=== PATIENT | female | born 2000 | race Caucasian/White ===

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

== ENCOUNTER 2022-03-18 16:41 | Emergency (ER) | payer OTHER, SELFPAY ==
[2022-03-18 16:49] VITALS: BP 116/73; PULSE 59; RESP 18; TEMP 36.8; O2SAT 99; BMI 21.7
[2022-03-18 17:20] LABS: COVID-19 Test Negative (Negative); IDNOW Serial# 9DB6401D
== END 2022-03-18 21:00 | disposition left against medical advice (07) ==
PROVIDERS: Emergency Provider Emergency Medicine; PCP Pediatrics
DX: R07.9 Chest pain, unspecified (principal); Z20.822 Contact with and (suspected) exposure to COVID-19
CPT/HCPCS: 87635; 99281; 99283

== ENCOUNTER 2022-09-28 00:16 | Emergency (ER) | payer OTHER, SELFPAY ==
[2022-09-28 00:23] VITALS: BP 109/74; PULSE 78; RESP 20; TEMP 36.5; O2SAT 100; BMI 19.2
[2022-09-28] MEDS: Ondansetron ODT 4 MG TAB.RAPDIS TRANSLINGU (00:34)
--- NOTE | 2022-09-28 00:37 | ED_ITS ---
HPI - Nausea/Vomiting/Diarrhea General Chief complaint: Nausea/Vomiting/Diarrhea Stated complaint: Vomiting, diarrhea 3 days Time Seen by Provider: 09/28/22 00:36 Source: patient Mode of arrival: ambulatory Limitations: no limitations History of Present Illness HPI Narrative: Patient otherwise healthy been sick for last 3 days with nausea/vomiting/diarrhea vomited multiple times unable to hold any liquids down also has watery stool denies any significant abdominal pain no upper respiratory symptoms Related Data Previous Rx's Medication Instructions Recorded ibuprofen 600 mg tablet 600 mg PO Q8H PRN pain #20 tabs 07/20/21 loperamide 2 mg capsule (Imodium 2 mg PO Q6H PRN loose stool #14 09/28/22 A-D) caps ondansetron 4 mg disintegrating 4 mg PO Q6-8H PRN nausea and 09/28/22 tablet vomiting #14 tabs Allergies Allergy/AdvReac Type Severity Reaction Status Date / Time No Known Allergies Allergy Verified 09/28/22 00:27 Review of Systems Review of Systems: Yes all other systems are reviewed and are negative [facility] Past Medical History Medical History No known health problems Social History Social History Advance Directives: No Advance Directives Information Provided: Yes Physical Exam Vital Signs: Vital Signs: Last Vital Signs Temp 97.7 F 09/28/22 00:23 Pulse 78 09/28/22 00:23 Resp 20 09/28/22 00:23 BP 109/74 09/28/22 00:23 Pulse Ox 100 09/28/22 00:23 O2 Del Method 09/28/22 00:23 BMI result Body Mass Index 19.2 Appearance: Alert. Oriented X3. Actively vomiting and retching Eyes: No pallor or icterus ENT: Pharynx normal. Oral Mucosa moist Neck: Normal inspection. Neck supple. CVS: Normal heart rate and rhythm. Pulses normal. Respiratory: No respiratory distress. Equal air entry bilateral, no wheezing/rales/rhonchi Abdomen: Soft and nontender. Bowel sounds are present, no mass palpable, no CVA tenderness Skin: Skin warm and dry. Normal skin color. Normal skin turgor. Extremities: No lower extremity edema. No calf tenderness Neuro: Oriented X 3. No motor deficit. Medications Administered Discontinued Medications Generic Name Dose Route Start Last Admin Trade Name Alyssa PRN Reason Stop Dose Admin Sodium Chloride 1,000 mls @ 999 mls/hr 09/28/22 00:48 09/28/22 02:52 Ns IV 09/28/22 01:48 Infused .Q1H1M ONE Infusion Loperamide HCl 2 mg 09/28/22 00:48 09/28/22 00:58 Loperamide Hcl 2 Mg Capsule PO 09/28/22 00:49 2 mg ONCE ONE Administration Ondansetron HCl 4 mg 09/28/22 00:28 09/28/22 00:34 Ondansetron Odt 4 Mg Tab.Rapdis TRANSLINGU 09/28/22 00:29 4 mg ONCE ONE Administration Prochlorperazine Edisylate 10 mg 09/28/22 00:49 09/28/22 00:58 Prochlorperazine Edisylate 10 Mg/2 Ml Vial IVPUSH 09/28/22 00:50 10 mg ONCE ONE Administration Medical Decision Making Medical Decision Making [facility] Narrative: Patient acute gastroenteritis likely viral felt better after IV fluids taking p.o. challenge now will discharge patient home on Zofran and Imodium Lab Data [facility] Lab Attestation statement: I reviewed the patient's lab results. 09/28/22 00:53 09/28/22 00:53 Labs: Lab Results 09/28/22 09/28/22 Range/Units 00:53 00:53 WBC 17.0 H (4.8-10.8) X10*3/uL RBC 5.01 (4.20-5.50) X10*6/uL Hgb 14.7 (12.0-16.0) g/dl Hct 44.0 (37.0-47.0) % MCV 87.8 (80.0-98.0) fL MCH 29.3 (27.0-33.0) pg MCHC 33.4 (31.0-35.0) g/dl RDW 12.6 (11.0-16.0) % Plt Count 256 (160-400) X10*3/uL MPV 9.8 (9.4-12.3) fL Immature Gran % (Auto) 0.6 H (0.0-0.4) % Neut % (Auto) 88.7 H (45-73) % Lymph % (Auto) 5.8 L (20-40) % Barnwell % (Auto) 4.4 (2-11) % Eos % (Auto) 0.1 (0-4) % Baso % (Auto) 0.4 (0-2) % Lymph # (Auto) 1.0 L (1.2-4.9) X10*3/uL Barnwell # (Auto) 0.8 (0.1-1.2) X10*3/uL Eos # (Auto) 0.0 (0.0-0.4) X10*3/uL Baso # (Auto) 0.1 (0.0-0.2) X10*3/uL Abs Immat Gran (auto) 0.11 H (0.00-0.03) X10*3/uL Absolute Neuts (auto) 15.0 H (2.0-8.3) x10*3/uL Absolute Nucleated RBC 0.000 (0.0-0.012) X10*3/uL Nucleated RBC % (auto) 0.0 (0.0-0.2) /100WBC Sodium 142 (135-145) mmol/L Potassium 4.2 (3.3-5.1) mmol/L Chloride 107 (96-108) mmol/L Carbon Dioxide 20 L (22-29) mmol/L Anion Gap 19 (12-20) BUN 19 H (9-16) mg/dL Creatinine 0.84 (0.5-1.4) mg/dL Estim Creat Clear Calc 80.2 Estimated GFR > 60 Random Glucose 140 H (60-115) mg/dL Calcium 10.3 H (8.4-10.2) mg/dL Total Bilirubin 0.9 (0.0-1.0) mg/dL AST 28 (5-31) U/L ALT 34 H (0-31) U/L Alkaline Phosphatase 130 H (39-117) U/L Total Protein 8.6 H (6.5-8.0) g/dL Albumin 5.5 H (3.5-5.0) g/dL Lipase 9 (8-78) U/L Discharge Plan Discharge Clinical Impression: Gastroenteritis Patient Disposition: Home, Self-Care Instructions: Gastroenteritis (ED) Additional Instructions: Drink plenty of fluids Zofran and Imodium as advised Follow with PCP if not better Prescriptions: New ondansetron 4 mg tablet,disintegrating 4 mg PO Q6-8H PRN (Reason: nausea and vomiting) Qty: 14 0RF loperamide [Imodium A-D] 2 mg capsule 2 mg PO Q6H PRN (Reason: loose stool) Qty: 14 0RF No Action ibuprofen 600 mg tablet 600 mg PO Q8H PRN (Reason: pain) Qty: 20 0RF
--- OUTSIDE RECORDS SUMMARY | 2022-09-28 00:39 | XMS_ITS | Continuity of Care Document ---
:2000 Author Organization [facility] Address [address] [place] [address]- Care Team Providers Name Role Phone Barb Gonzales MD Primary Care Physician [place] [facility] [place] 05/23/[address] [address] Encounter Diagnosis Viral syndrome (Final) - 05/23/20 First degree AV block (Final) - 05/23/20 Discharge Disposition: A-D/C Home Attending Physician: Mika Du MD Admitting Physician: Mika Du MD Referring Physician: Not on Staff, Referring MD Allergies, Adverse Reactions, Alerts Substance Reaction Severity Status NKA Active Medications Motrin Childrens 100 mg oral tablet, chewable 3 tablet = 300 mg, Chew, Every 6 hours, PRN for pain, # 80 tablet, 0 Refills, Maintenance, Chew Tablet Start Date: 04/16/13 Status: OrderedNo Home Meds 0, 0, 06/21/07 6:30:21, Current med (Hx) Start Date: 06/21/07 Status: Ordered Results Radiology Reports Exam Date Time Procedure Performing Provider Status 05/23/20 10:38 PM Chest Portable Rimma Colon (Verified ) Notes:(Chest Portable) Reason For Exam: Shortness of BreathRESULT: Chest Portable Chest Portable AP upright at 2224 hours Hx of Present Illness: epigastric and midsternal chest pain that hurts most when breathing in, entire body aches x 2 days, diarrhea today 3-4 times, taking PO, denies fever, does not want to take pain meds; Reason: Shortness of Breath; Clinical Question(s): CHF COMPARISON: 04/16/2013 FINDINGS: LINES AND TUBES: None. LUNGS AND PLEURA: The lungs are clear. No pleural effusion. No pneumothorax. HEART, MEDIASTINUM AND TONY: Normal. BONES AND SOFT TISSUES: Normal. IMPRESSION: Normal. WSN: [id number] Ordering Physician: Moo Chau Dictated By: Jimmie Dodson DO Dictated Date/Time: 05/23/20 10:42 p Reviewed By: Jimmie Dodson DO Signed By: Jimmie Dodson DO Signed Date/Time: 05/23/20 10:42 pm Transcribed By: ANDRA Transcribed Date/Time: 05/23/20 10:42 pm Vital Signs Most recent to oldest [Reference Range]: 1 2 Height 157 cm 157 cm (05/23/20 10:09 PM) (05/23/20 8:08 PM) Weight 56.0 kg 56.0 kg (05/23/20 10:09 PM) (05/23/20 8:08 PM) Oxygen Saturation [94-100 %] 100 % 100 % (05/23/20 10:09 PM) (05/23/20 8:08 PM) Pulse Rate [55-90 bpm] 69 bpm 89 bpm (05/23/20 10:09 PM) (05/23/20 8:08 PM) Body Mass Index [18.5-24.99] 22.72 22.72 (05/23/20 10:09 PM) (05/23/20 8:08 PM) Blood Pressure [80-130/50-80 mm Hg] 110/66 mm Hg 125/ 78 mm Hg (05/23/20 10:09 PM) (05/23/20 8:08 PM) Respiratory Rate [16-30 br/min] 18 br/min 19 br/mi n (05/23/20 10:09 PM) (05/23/20 8:08 PM) Temperature [96.8-100.4 DegF] 99.0 DegF 98.1 DegF (05/23/20 10:09 PM) (05/23/20 8:08 PM) Mode of Delivery (Oxygen) Room air Room air (05/23/20 10:09 PM) (05/23/20 8:08 PM) Blood pressure sites Arm, left Arm, right (05/23/20 10:09 PM) (05/23/20 8:08 PM) Temperature Route Oral Oral (10/16/20 10:09 PM) (05/23/20 8:08 PM) Dry Weight 56.0 kg 56.0 kg (05/23/20 10:09 PM) (05/23/20 8:08 PM) Weight Obtained Via Standing scale (05/23/20 8:08 PM) Dry Weight Obtained Via Standing scale (05/23/20 8:08 PM)
--- OUTSIDE RECORDS SUMMARY | 2022-09-28 00:39 | XMS_ITS | Continuity of Care Document ---
:2000 Author Organization [facility] Address [address] [place] [address]- Care Team Providers Name Role Phone Barb Gonzales MD Primary Care Physician Encounter [facility] [place] Date(s): 04/01/22 - 04/01/[address] [address]- Discharge Disposition: A-D/C Walkout Attending Physician: Not on Staff, Attending MD Admitting Physician: Not on Staff, Admitting MD Referring Physician: Not on Staff, Referring MD Allergies, Adverse Reactions, Alerts No Known Allergies Medications Motrin Childrens 100 mg oral tablet, chewable 3 tablet = 300 mg, Chew, Every 6 hours, PRN for pain, # 80 tablet, 0 Refills, Maintenance, Chew Tablet Start Date: 04/16/13 Status: OrderedNo Home Meds 0, 0, 06/21/07 6:30:21, Current med (Hx) Start Date: 06/21/07 Status: Ordered Vital Signs Most recent to oldest 1 2 3 [Reference Range]: Oxygen Saturation [94-100 %] 100 % 98 % 100 % (04/01/22 6:58 PM) (04/01/22 4:48 PM) (04/01/22 4:3 3 PM) Pulse Rate [55-90 bpm] 66 bpm 53 bpm 51 bpm (04/01/22 6:58 PM) *L* *L* (04/01/22 4:48 PM) (04/01/22 4:33 PM) Blood Pressure [90-138/55-84 mm 117/65 mm Hg 110/60 mm Hg Hg] (04/01/22 6:58 PM) (04/01/22 4:48 PM) Respiratory Rate [16-30 br/min] 16 br/min (04/01/22 4:48 PM) Temperature [96.8-100.4 DegF] 97.0 DegF 98.9 DegF (04/01/22 6:58 PM) (04/01/22 4:48 PM) Mode of Delivery (Oxygen) Room air Room air Room a ir (04/01/22 6:58 PM) (04/01/22 4:48 PM) (04/01/22 4:3 3 PM) Blood pressure sites Arm, left Arm, right (04/01/22 6:58 PM) (04/01/22 4:48 PM) Temperature Route Temporal Oral (04/01/22 6:58 PM) (04/01/22 4:48 PM) Care Team PersonnelName: Barb Gonzales MD Address: [address] [place] [address] [facility] [place], [place] [address]
[2022-09-28] MEDS: Prochlorperazine Edisylate 10 MG/2 ML VIAL IVPUSH (00:58)
[2022-09-28] MEDS: 0.9 % Sodium Chloride 1,000 ML 999 ML IV ×2 (00:58→03:22)
[2022-09-28] MEDS: Loperamide HCl 2 MG CAPSULE PO (00:58)
[2022-09-28 01:03] LABS: MANUAL DIFF FLAG NO
[2022-09-28 01:04] LABS: Basophils Absolute Auto 0.1 X10*3/uL (0.0-0.2); Basophils Percent Auto 0.4 % (0-2); Eosinophils Percent Auto 0.1 % (0-4); Hemoglobin 14.7 g/dl (12.0-16.0); Imm Gran Abs Auto 0.11 X10*3/uL (0.00-0.03); Imm Gran Pct Auto 0.6 % (0.0-0.4); Lymphocytes Percent Auto 5.8 % (20-40); Mean Corpuscular HGB Conc 33.4 g/dl (31.0-35.0); Mean Corpuscular Hemoglobin 29.3 pg (27.0-33.0); Mean Corpuscular Volume 87.8 fL (80.0-98.0); Mean Platelet Volume 9.8 fL (9.4-12.3); Monocytes Absolute Auto 0.8 X10*3/uL (0.1-1.2); Monocytes Percent Auto 4.4 % (2-11); Neutrophils Percent Auto 88.7 % (45-73); Platelet Count 256 X10*3/uL (160-400); Red Blood Count 5.01 X10*6/uL (4.20-5.50); Red Cell Distribution Width 12.6 % (11.0-16.0)
[2022-09-28 01:25] LABS: Alanine Aminotransferase 34 U/L (0-31); Albumin Level 5.5 g/dL (3.5-5.0); Alkaline Phosphatase 130 U/L (39-117); Anion Gap 19 (12-20); Aspartate Amino Transferase 28 U/L (5-31); Bilirubin Total 0.9 mg/dL (0.0-1.0); Blood Urea Nitrogen 19 mg/dL (9-16); Calcium 10.3 mg/dL (8.4-10.2); Carbon Dioxide 20 mmol/L (22-29); Chloride 107 mmol/L (96-108); Creatinine Clr Calc Pharmacy 80.2; Estimated Glomerular Filt Rate > 60; Glucose Random 140 mg/dL (60-115); Lipase 9 U/L (8-78); Potassium 4.2 mmol/L (3.3-5.1); Sodium 142 mmol/L (135-145); Total Protein 8.6 g/dL (6.5-8.0)
[2022-09-28] MEDS: ondansetron HCL 4 MG/2 ML VIAL IVPUSH (03:22)
== END 2022-09-28 04:49 | disposition home or self-care (01) ==
PROVIDERS: Emergency Provider Internal Medicine; PCP Pediatrics
DX: K52.9 Noninfective gastroenteritis and colitis, unspecified (principal); R11.2 Nausea with vomiting, unspecified
CPT/HCPCS: 36415; 80053; 83690; 85025; 96361; 96374; 96375; 99283; 99284; J2405

== ENCOUNTER 2022-12-21 18:10 | Emergency (ER) | payer OTHER, SELFPAY ==
--- NOTE | ~2022-12-21 | XR_ITS ---
EXAMINATION: XR FINGER, LEFT CLINICAL INFORMATION: Fourth digit pain COMPARISON: None available. TECHNIQUE: 4 views of the left ring finger. FINDINGS: There is an intra-articular fracture involving the distal head of the middle phalanx of the fourth digit. There is some impaction and ventral angulation of the distal fracture fragment. No additional fractures are seen. There is associated soft tissue swelling XR/XR finger LT min 2V IMPRESSION: Fracture of the middle phalanx of the fourth digit as described above.
[2022-12-21 19:13] VITALS: BP 126/80; PULSE 74; RESP 16; TEMP 36.6; O2SAT 100; BMI 19.9
--- NOTE | 2022-12-21 19:13 | ED.GENADULT ---
HPI - General Adult General Chief complaint: Extremity Injury, Upper Stated complaint: finger injury Time Seen by Provider: 12/21/22 19:51 Source: patient Mode of arrival: ambulatory Limitations: no limitations History of Present Illness HPI narrative: 13-[id number]-oag-female presenting to the ER for evaluation of leftfourth finger pain s/p fall. Was playing with friend and fell onto it. On exam, fourth left finger at middle phalanx, full flexion and extension. No other injury Related Data Previous Rx's Medication Instructions Recorded ibuprofen 600 mg tablet 600 mg PO Q8H PRN pain #20 tabs 07/20/21 loperamide 2 mg capsule (Imodium 2 mg PO Q6H PRN loose stool #14 09/28/22 A-D) caps ondansetron 4 mg disintegrating 4 mg PO Q6-8H PRN nausea and 09/28/22 tablet vomiting #14 tabs Allergies Allergy/AdvReac Type Severity Reaction Status Date / Time No Known Allergies Allergy Verified 09/28/22 00:27 Review of Systems Review of Systems: Yes all other systems are reviewed and are negative Constitutional: Constitutional: Reports no additional constitutional complaints, Denies body ache(s), Denies chills, Denies fever(s), Denies headache(s) and Denies weakness Eyes: Eyes: Reports no additional eye complaints and Denies change in vision ENT: Reports system reviewed and no additional complaints, except as documented, Denies dizziness, Denies headache(s), Denies nasal congestion, Denies nasal discharge and Denies neck pain Cardiovascular: Cardiovascular: Reports no additional cardiovascular complaints, Denies chest pain, Denies leg edema and Denies dyspnea Respiratory: Respiratory: Reports no additional respiratory complaints, Denies cough and Denies dyspnea Gastrointestinal: Gastrointestinal: Reports no additional gastrointestinal complaints, Denies abdominal pain, Denies diarrhea, Denies nausea and Denies vomiting Genitourinary: Genitourinary: Reports no additional female genitourinary complaints and Denies urinary incontinence Musculoskeletal: Musculoskeletal: Reports no additional musculoskeletal complaints, Denies back pain, Reports arthralgias, Reports joint swelling, Denies limited range of motion, Denies neck pain, Denies numbness and Denies tingling Integumentary/Breasts: Skin/Breast: Reports system reviewed and no additional complaints, except as docu and Denies rash Neurologic: Reports system reviewed and no additional complaints, except as documented, Denies dizziness, Denies headache(s), Denies numbness, Denies tingling and Denies weakness PMF[facility] Past Medical History Attestation statement: The following information was validated with the patient. Source: old records reviewed and nursing notes reviewed Medical History No known health problems Social History Social History Advance Directives: No Advance Directives Information Provided: No Physical Exam ED Vital Signs: Vital Signs - 24 hr 12/21/22 19:13 Temperature 97.9 F Pulse Rate 74 Respiratory Rate 16 Blood Pressure 126/80 Pulse Oximetry 100 Oxygen Delivery Method Room Air BMI result Body Mass Index 19.9 Const General: cooperative, healthy appearing, comfortable and no acute distress Orientation/consciousness: patient oriented x3 Limitations: no limitations HENMT Head: Yes normal to inspection Ears: hearing grossly normal bilaterally Eyes General: appearance normal, both eyes and all related structures Neck Neck: Yes normal visual inspection Chest Chest palpation & inspection: normal inspection of the chest Resp Effort & Inspection: normal respiratory effort Cardio Peripheral pulses: Peripheral pulses 2+ throughout Skin General skin exam: no rashes or lesions noted Neuro General: patient oriented x3 and moves all extremities Cognition (Neuro): normal cognition Gait exam (Neuro): Normal gait present Extrem Other: To left hand 4th digit here wit swelling/ecchymposis to middle phalanx with FROM. CMS intact distally Course Course Course Narrative: This is an RME: Additional HPI, ROS, PE not included below will be deferred to primary provider. 20-iaiq-eip-female presenting to the ER for evaluation of leftfourth finger pain s/p fall. Was playing with friend and fell onto it. On exam, fourth left finger at middle phalanx, full flexion and extension. VSS. Plan: xray left fourth finger Reevaluation(s) Reevaluation #1: x-rays show fracture. given finger splint, reviewed rice, reviewed worrisome s/s with the patient and when to seek additional care. comfortable with discharge home. Medical Decision Making Medical Decision Making MDM Narrative: 81-[id number]-tzo-female presenting to the ER for evaluation of leftfourth finger pain s/p fall. Was playing with friend and fell onto it. On exam, fourth left finger at middle phalanx, full flexion and extension. VSS. Plan: xray left fourth finger Differential Diagnosis Differential Diagnoses: The differential diagnosis associated with the presentation includes fracture, contusion low concern for tendon injury or vascular injury Discharge Plan Discharge Clinical Impression: Finger fracture Patient Disposition: Home, Self-Care Instructions: Finger Fracture (ED) Additional Instructions: Use the splint for comfort Ice to the area Motrin or tylenol for pain as needed Prescriptions: No Action ondansetron 4 mg tablet,disintegrating 4 mg PO Q6-8H PRN (Reason: nausea and vomiting) Qty: 14 0RF loperamide [Imodium A-D] 2 mg capsule 2 mg PO Q6H PRN (Reason: loose stool) Qty: 14 0RF ibuprofen 600 mg tablet 600 mg PO Q8H PRN (Reason: pain) Qty: 20 0RF Referrals: [facility] [Provider Group] - 10 days
--- NOTE | 2022-12-21 19:31 | PC.NURSE ---
Patient was playing with her sister when she jammed her finger. Left middle finger is notably swollen and patient is having trouble bending it. Patient otherwise well appearing.
== END 2022-12-21 20:15 | disposition home or self-care (01) ==
PROVIDERS: Emergency Provider Emergency Medicine; PCP Pediatrics
DX: S62.625A Displaced fracture of middle phalanx of left ring finger, initial encounter for closed fracture (principal); W01.0XXA Fall on same level from slipping, tripping and stumbling without subsequent striking against object, initial encounter; Y93.83 Activity, rough housing and horseplay; Y92.039 Unspecified place in apartment as the place of occurrence of the external cause; Y99.9 Unspecified external cause status
CPT/HCPCS: 29130; 73140; 99282; 99283

== ENCOUNTER 2023-01-05 07:15 | Outpatient (REF) | payer OTHER, SELFPAY ==
--- NOTE | ~2023-01-05 | XR_ITS ---
EXAMINATION: XR HAND, LEFT CLINICAL INFORMATION: Left hand pain COMPARISON: 12/21/2022 TECHNIQUE: PA, lateral, and oblique views of the left hand. FINDINGS: Acute comminuted fracture at the distal metaphysis of the fourth middle phalanx extending into the DIP joint joint space. Fracture fragments demonstrate some mild impaction with no significant change in positioning. Joint spaces are otherwise well-maintained. Soft tissue swelling is seen. No significant change compared to the prior exam XR/XR hand LT min 3V IMPRESSION: Acute fracture of the fourth middle phalanx. Stable position
== END 2023-01-05 07:16 | disposition home or self-care (01) ==
LOC: HO.HOSX 07:15
PROVIDERS: Visit Provider Physician Assistant
DX: S62.605A Fracture of unspecified phalanx of left ring finger, initial encounter for closed fracture (principal); W19.XXXA Unspecified fall, initial encounter; Y93.9 Activity, unspecified; Y92.9 Unspecified place or not applicable; Y99.9 Unspecified external cause status
CPT/HCPCS: 73130; 99202

== ENCOUNTER 2023-01-28 12:29 | Outpatient (REF) | payer OTHER, SELFPAY ==
--- NOTE | ~2023-01-28 | XR_ITS ---
EXAMINATION: XR HAND, LEFT CLINICAL INFORMATION: Left hand pain COMPARISON: 01/05/2023, 12/21/2022 TECHNIQUE: PA, lateral, and oblique views of the left hand. FINDINGS: Radiopaque marker was placed by technologist to indicate area of concern as indicated by patient at the distal aspect of the fourth digit. Redemonstration of comminuted fracture of the distal metaphysis of the fourth middle phalanx with mild displacement of fracture fragments, extending into the DIP joint space. Fracture line appears less distinct, suggesting some interval callus formation. XR/XR hand LT min 3V IMPRESSION: Healing fracture fourth middle phalanx.
== END 2023-01-28 12:30 | disposition home or self-care (01) ==
LOC: HO.HOSX 12:29
PROVIDERS: Visit Provider Physician Assistant
DX: M79.642 Pain in left hand (principal)
CPT/HCPCS: 73130; 99212

== ENCOUNTER 2023-01-31 04:43 | Emergency (ER) | payer OTHER, SELFPAY ==
[2023-01-31 04:53] VITALS: BP 96/58; PULSE 84; RESP 14; O2SAT 98; BMI 18.9
[2023-01-31 05:20] LABS: Basophils Absolute Auto 0.1 X10*3/uL (0.0-0.2); Basophils Percent Auto 1.4 % (0-2); Eosinophils Absolute Auto 0.1 X10*3/uL (0.0-0.4); Eosinophils Percent Auto 1.6 % (0-4); Hematocrit 40.2 % (37.0-47.0); Imm Gran Abs Auto 0.01 X10*3/uL (0.00-0.03); Imm Gran Pct Auto 0.2 % (0.0-0.4); Lymphocytes Absolute Auto 1.7 X10*3/uL (1.2-4.9); Lymphocytes Percent Auto 33.1 % (20-40); MANUAL DIFF FLAG NO; Mean Corpuscular HGB Conc 32.3 g/dl (31.0-35.0); Mean Corpuscular Volume 89.7 fL (80.0-98.0); Mean Platelet Volume 9.3 fL (9.4-12.3); Monocytes Absolute Auto 0.5 X10*3/uL (0.1-1.2); Monocytes Percent Auto 10.2 % (2-11); Neutrophils Absolute Auto 2.7 x10*3/uL (2.0-8.3); Neutrophils Percent Auto 53.5 % (45-73); Platelet Count 254 X10*3/uL (160-400); Red Blood Count 4.48 X10*6/uL (4.20-5.50); Red Cell Distribution Width 12.8 % (11.0-16.0); White Blood Count 5.1 X10*3/uL (4.8-10.8)
[2023-01-31 05:21] LABS: Appearance Urine Turbid; Color Urine Yellow; Glucose Urine UA Negative (Negative); Leukocyte Esterase Urine Trace (Negative); Nitrite Urine Negative (Negative); PH 5.5 (5.0-9.0); Specific Gravity - Urine 1.025 (1.005-1.025); UMIC TRIGGER UACC YES; Urine Blood Small (1+) (Negative); Urine Ketones Trace mg/dL (Negative); Urine Protein 30 (1+) mg/dL (Neg-Trace)
[2023-01-31 05:33] LABS: Ethanol 49 mg/dL
[2023-01-31 05:34] LABS: Bacteria Urine 2+ (None Seen); Other Crystals Urine Present; UACC Culture Trigger YES
[2023-01-31 05:35] LABS: Alanine Aminotransferase 21 U/L (0-31); Albumin Level 4.9 g/dL (3.5-5.0); Alkaline Phosphatase 114 U/L (39-117); Anion Gap 13 (12-20); Aspartate Amino Transferase 20 U/L (5-31); Bilirubin Total 0.4 mg/dL (0.0-1.0); Blood Urea Nitrogen 9 mg/dL (9-16); Calcium 9.6 mg/dL (8.4-10.2); Carbon Dioxide 28 mmol/L (22-29); Chloride 110 mmol/L (96-108); Creatinine Clr Calc Pharmacy 90.4; Estimated Glomerular Filt Rate > 60; Glucose Random 96 mg/dL (60-115); Lipase 5 U/L (8-78); Potassium 3.8 mmol/L (3.3-5.1); Sodium 147 mmol/L (135-145); Total Protein 7.9 g/dL (6.5-8.0)
[2023-01-31 06:42] VITALS: BP 125/77; PULSE 68; RESP 18; TEMP 37.2; O2SAT 99
[2023-01-31] MEDS: 0.9 % Sodium Chloride 1,000 ML 999 ML IV (06:50)
[2023-01-31] MEDS: ondansetron HCL 4 MG/2 ML VIAL IVPUSH (06:50)
--- NOTE | 2023-01-31 06:52 | PC.NURSE ---
patient received all medications with no issues patient vitals are stable at this time patient is waiting to see the doctor at this time
--- NOTE | 2023-01-31 06:59 | ED_ITS ---
HPI - Nausea/Vomiting/Diarrhea General Chief complaint: Nausea/Vomiting/Diarrhea Stated complaint: nausea Time Seen by Provider: 01/31/23 06:58 Source: patient, RN notes reviewed and old records reviewed Mode of arrival: ambulatory Limitations: no limitations History of Present Illness HPI Narrative: 22 year old female with no known significant PMHx presents to the ED complaining of nausea, nonbloody emesis and diarrhea since 2AM s/p drinking 1/2 pint of [place]. Denies illicit drug use. Reports epigastric abdominal pain. Denies CP/SOB, headache, dysuria, urgency, frequency, or vaginal bleeding. No other acute concerns at this time. Denies suspicious food intake, recent travel, sick contacts. Denies being chronic ETOH abuse MD elicited complaint: nausea, vomiting and diarrhea Related Data Previous Rx's Medication Instructions Recorded ondansetron 4 mg disintegrating 4 mg PO Q8H PRN nausea and 01/31/23 tablet vomiting #8 tabs Allergies Allergy/AdvReac Type Severity Reaction Status Date / Time No Known Allergies Allergy Verified 01/31/23 04:52 Review of Systems Review of Systems: Constitutional: No Fever, No Chills ENT/Mouth: No Nasal Congestion,No Hoarseness, No sore throat Cardiovascular: No Chest Pain, No SOB Respiratory: No Cough, No Sputum, No Wheezing Gastrointestinal: + Nausea, + Vomiting, No Diarrhea, + Abdominal pain Genitourinary: No Dysuria, No Urinary Frequency, No Hematuria, No Urgency Skin: No Skin Lesions, No rash Neuro: No Weakness Yes all other systems are reviewed and are negative Constitutional: Constitutional: Reports as per [facility] Past Medical History Attestation statement: The following information was validated with the patient. Source: old records reviewed Medical History No known health problems Social History Social History Alcohol intake: never Smoked in Last 30 Days: No Use of substances other than those prescribed or required for medical reasons: No Advance Directives: No Patient : No Physical Exam Vital Signs: Vital Signs: Last Vital Signs Temp 98.1 F 01/31/23 08:00 Pulse 57 01/31/23 08:00 Resp 16 01/31/23 08:00 BP 117/74 01/31/23 08:00 Pulse Ox 100 01/31/23 08:00 O2 Del Method Room Air 01/31/23 08:00 BMI result Body Mass Index 18.9 Const: Other: pale, uncomfortable General: cooperative, no acute distress, alert and awake Nutritional Appearance: thin Orientation/consciousness: patient oriented x3 L imitations: no limitations HEENT: Head: Yes normal to inspection and Yes atraumatic Ears: hearing grossly normal bilaterally General nose exam: Normal external nose present Face and sinus: Yes normal facial exam Throat: Yes posterior oropharynx normal Eyes: General: appearance normal, both eyes and all related structures EOM: EOMs intact bilaterally Neck: Neck: Yes normal visual inspection Chest: Chest palpation & inspection: normal inspection of the chest and normal palpation of entire chest wall Resp: Effort & Inspection: normal respiratory effort and no respiratory distress Auscultation: clear to auscultation bilaterally Cardio: Rate: regular rate Heart sounds: S1 normal heart sound present and S2 normal heart sound present GI: Inspection: Yes normal to inspection Palpation (GI): Soft to palpation, nontender, no guarding and not rigid : General: Yes no CVA tenderness Back/Spine/Pelvis: Back: no CVA tenderness Skin: Rashes: no rashes Wounds: no wounds Neuro: General: patient oriented x3, gait normal, tone normal and moves all extremities Gait exam (Neuro): Normal gait present Extrem: General: Yes normal to inspection Course Course Course Narrative: -901--no leukocytosis. Mild hypernatremia likely from dehydration. Labs otherwise reassuring -UA contaminated, will avoid antibiotic initiation until culture results -ethinyl 49 -tox screen positive for THC. Urine negative >0952--on re-evaluation patient reports symptomatic improvement, tolerating p.o. without nausea or vomiting. Feels safe for discharge home at this time Results discussed with patient including worrisome signs and symptoms and strict return precautions, and when to return to the emergency department. They verbalized understanding and feel safe for discharge at this time. Medications Administered Discontinued Medications Generic Name Dose Route Start Last Admin Trade Name Freq PRN Reason Stop Dose Admin Diphenhydramine HCl 25 mg 01/31/23 07:57 01/31/23 08:14 Diphenhydramine Hcl 50 Mg/Ml Vial IVPUSH 01/31/23 07:58 25 mg ONCE ONE Administration Sodium Chloride 1,000 mls @ 999 mls/hr 01/31/23 06:45 01/31/23 10:00 Ns IV 01/31/23 07:45 Infused .Q1H1M DANIELLA Infusion Metoclopramide HCl 10 mg 01/31/23 07:57 01/31/23 08:14 Metoclopramide Hcl 10 Mg/2 Ml Vial IVPUSH 01/31/23 07:58 10 mg ONCE ONE Administration Ondansetron HCl 4 mg 01/31/23 06:43 01/31/23 06:50 Ondansetron Hcl 4 Mg/2 Ml Vial IVPUSH 01/31/23 06:44 4 mg ONCE ONE Administration Medical Decision Making Medical Decision Making [facility] Narrative: 22 year old female with no known significant PMHx presents to the ED complaining of nausea, nonbloody emesis and diarrhea since 2AM s/p drinking 1/2 pint of [place]. On exam, vital signs stable, NAD, uncomfortable on exam, abdomen soft, nontender, no guarding or rigidity. Concern for alcohol intoxication/overuse/binge drinking vs gastroenteritis vs GERD/gastritis vs pancreatitis. Rule out metabolic abnormalities. Low suspicion for appendicitis/diverticulitis, SBO or ectopic . Plan: Labs, Tox, UA, IVF, Zofran, re-evaluate Please refer to course for remaining clinical decision making, interpretation of labs/imaging results, and discussions with consultants and/or family members. Differential Diagnosis Differential Diagnoses: The differential diagnosis associated with the presentation includes As above Admission/Observation Consideration of admission/observation: Escalation of care including admission/observation considered Lab Data [facility] Lab Attestation statement: I reviewed the patient's lab results. 01/31/23 05:15 01/31/23 05:15 Labs: Lab Results 01/31/23 01/31/23 01/31/23 Range/Units 05:14 05:15 05:15 WBC 5.1 (4.8-10.8) X10*3/uL RBC 4.48 (4.20-5.50) X10*6/uL Hgb 13.0 (12.0-16.0) g/dl Hct 40.2 (37.0-47.0) % MCV 89.7 (80.0-98.0) fL MCH 29.0 (27.0-33.0) pg MCHC 32.3 (31.0-35.0) g/dl RDW 12.8 (11.0-16.0) % Plt Count 254 (160-400) X10*3/uL MPV 9.3 L (9.4-12.3) fL Immature Gran % (Auto) 0.2 (0.0-0.4) % Neut % (Auto) 53.5 (45-73) % Lymph % (Auto) 33.1 (20-40) % [place] % (Auto) 10.2 (2-11) % Eos % (Auto) 1.6 (0-4) % Baso % (Auto) 1.4 (0-2) % Lymph # (Auto) 1.7 (1.2-4.9) X10*3/uL [place] # (Auto) 0.5 (0.1-1.2) X10*3/uL Eos # (Auto) 0.1 (0.0-0.4) X10*3/uL Baso # (Auto) 0.1 (0.0-0.2) X10*3/uL Abs Immat Gran (auto) 0.01 (0.00-0.03) X10*3/uL Absolute Neuts (auto) 2.7 (2.0-8.3) x10*3/uL Absolute Nucleated RBC 0.000 (0.0-0.012) X10*3/uL Nucleated RBC % (auto) 0.0 (0.0-0.2) /100WBC Sodium 147 H (135-145) mmol/L Potassium 3.8 (3.3-5.1) mmol/L Chloride 110 H (96-108) mmol/L Carbon Dioxide 28 (22-29) mmol/L Anion Gap 13 (12-20) BUN 9 (9-16) mg/dL Creatinine 0.71 (0.5-1.4) mg/dL Estim Creat Clear Calc 90.4 Estimated GFR > 60 Random Glucose 96 (60-115) mg/dL Calcium 9.6 D (8.4-10.2) mg/dL Magnesium 1.9 (1.6-2.6) mg/dL Total Bilirubin 0.4 (0.0-1.0) mg/dL AST 20 (5-31) U/L ALT 21 (0-31) U/L Alkaline Phosphatase 114 (39-117) U/L Total Protein 7.9 (6.5-8.0) g/dL Albumin 4.9 (3.5-5.0) g/dL Lipase 5 L (8-78) U/L Urine Color Urine Appearance Urine pH (5.0-9.0) Ur Specific [place] (1.005-1.025) Urine Protein (Neg-Trace) mg/dL Urine Glucose (UA) (Negative) mg/dL Urine Ketones (Negative) mg/dL Urine Blood (Negative) Urine Nitrite (Negative) Ur Leukocyte Esterase (Negative) Urine RBC (0-2) /HPF Urine WBC (0-5) /HPF Ur Squamous Epith Cells (0-2) /HPF Other Crystals Urine Bacteria (None Seen) Hyaline Casts (0-2) /LPF Urine Test (NEGATIVE) Urine Opiates Screen (Not Detect) Urine Fentanyl Screen (Not Detect) Ur Barbiturates Screen (Not Detect) Ur Phencyclidine Scrn (Not Detect) Ur Amphetamines Screen (Not Detect) U Benzodiazepines Scrn (Not Detect) Urine Cocaine Screen (Not Detect) U Marijuana (THC) Screen (Not Detect) Ethyl Alcohol 49 mg/dL 01/31/23 01/31/23 01/31/23 Range/Units 05:15 05:15 05:15 WBC (4.8-10.8) X10*3/uL RBC (4.20-5.50) X10*6/uL Hgb (12.0-16.0) g/dl Hct (37.0-47.0) % MCV (80.0-98.0) fL MCH (27.0-33.0) pg MCHC (31.0-35.0) g/dl RDW (11.0-16.0) % Plt Count (160-400) X10*3/uL MPV (9.4-12.3) fL Immature Gran % (Auto) (0.0-0.4) % Neut % (Auto) (45-73) % Lymph % (Auto) (20-40) % [place] % (Auto) (2-11) % Eos % (Auto) (0-4) % Baso % (Auto) (0-2) % Lymph # (Auto) (1.2-4.9) X10*3/uL [place] # (Auto) (0.1-1.2) X10*3/uL Eos # (Auto) (0.0-0.4) X10*3/uL Baso # (Auto) (0.0-0.2) X10*3/uL Abs Immat Gran (auto) (0.00-0.03) X10*3/uL Absolute Neuts (auto) (2.0-8.3) x10*3/uL Absolute Nucleated RBC (0.0-0.012) X10*3/uL Nucleated RBC % (auto) (0.0-0.2) /100WBC Sodium (135-145) mmol/L Potassium (3.3-5.1) mmol/L Chloride (96-108) mmol/L Carbon Dioxide (22-29) mmol/L Anion Gap (12-20) BUN (9-16) mg/dL Creatinine (0.5-1.4) mg/dL Estim Creat Clear Calc Estimated GFR Random Glucose (60-115) mg/dL Calcium (8.4-10.2) mg/dL Magnesium (1.6-2.6) mg/dL Total Bilirubin (0.0-1.0) mg/dL AST (5-31) U/L ALT (0-31) U/L Alkaline Phosphatase (39-117) U/L Total Protein (6.5-8.0) g/dL Albumin (3.5-5.0) g/dL Lipase (8-78) U/L Urine Color Yellow Urine Appearance Turbid Urine pH 5.5 (5.0-9.0) Ur Specific [place] 1.025 (1.005-1.025) Urine Protein 30 (1+) H (Neg-Trace) mg/dL Urine Glucose (UA) Negative (Negative) mg/dL Urine Ketones Trace (Negative) mg/dL Urine Blood Small (1+) H (Negative) Urine Nitrite Negative (Negative) Ur Leukocyte Esterase Trace H (Negative) Urine RBC 3-5 H (0-2) /HPF Urine WBC 11-20 H (0-5) /HPF Ur Squamous Epith Cells 11-20 (0-2) /HPF Other Crystals Present Urine Bacteria 2+ (None Seen) Hyaline Casts 3-5 (0-2) /LPF Urine Test NEGATIVE (NEGATIVE) Urine Opiates Screen Not Detected (Not Detect) Urine Fentanyl Screen Not Detected (Not Detect) Ur Barbiturates Screen Not Detected (Not Detect) Ur Phencyclidine Scrn Not Detected (Not Detect) Ur Amphetamines Screen Not Detected (Not Detect) U Benzodiazepines Scrn Not Detected (Not Detect) Urine Cocaine Screen Not Detected (Not Detect) U Marijuana (THC) Screen POSITIVE H (Not Detect) Ethyl Alcohol mg/dL External Record Review External record reviewed: Inpatient record, Office record, Outpatient record, Prior outpatient labs, Prior outpatient radiology, Primary care record and Outside ED record Tests considered The following testing was considered but not selected: As above Prescription Management I considered prescription management with: Pain Medication Social Determinants Patient?s care significantly limited by Social Determinants of Health including: Alcoholism and drug addiction in family Discharge Plan Discharge Clinical Impression: Drinking binge, Nausea & vomiting Patient Disposition: Home, Self-Care Instructions: Acute Nausea and Vomiting (ED) Additional Instructions: Your blood work and urine were reassuring Please avoid alcohol and drug use Zofran as antinausea medication, take as needed for nausea and vomiting Practice of bland diet Make sure in taking plenty of fluids Follow-up with her doctor, if symptoms persist or worsen, you are unable to eat or drink have persistent/worsening abdominal pain return to the ED Prescriptions: New ondansetron 4 mg tablet,disintegrating 4 mg PO Q8H PRN (Reason: nausea and vomiting) Qty: 8 0RF Referrals: Physician,Unknown J [Primary Care Provider] - Interventions: ED Discharge Assessment Last Done: 01/31/23 10:55 Discharge Date/Time: 01/31/23 10:55
[2023-01-31 07:40] LABS: Magnesium 1.9 mg/dL (1.6-2.6)
[2023-01-31 08:00] VITALS: BP 117/74; PULSE 57; RESP 16; TEMP 36.7; O2SAT 100
[2023-01-31] MEDS: Metoclopramide HCl 10 MG/2 ML VIAL IVPUSH (08:14)
[2023-01-31] MEDS: diphenhydrAMINE HCL 50 MG/ML VIAL 25 MG IVPUSH (08:14)
--- NOTE | 2023-01-31 08:22 | PC.NURSE ---
pt lying comfortably with the lights dimmed, vss, NS reconnected, meds administered per provider order, hyperactive bs noted upon auscultation, new emesis bag placed bedside, will continue to monitor.
[2023-01-31 09:39] LABS: UPreg QC Valid YES; Urine Pregnancy NEGATIVE (NEGATIVE)
[2023-01-31 09:47] LABS: Amphetamine Screen Urine Not Detected (Not Detect); Barbiturates, Urine Not Detected (Not Detect); Benzodiazepines Screen Urine Not Detected (Not Detect); Cannabinoid Screen Urine POSITIVE (Not Detect); Cocaine Screen Urine Not Detected (Not Detect); Fentanyl, urine Not Detected (Not Detect); Opiate Screen Urine Not Detected (Not Detect); Phencyclidine Screen Urine Not Detected (Not Detect)
== END 2023-01-31 10:55 | disposition home or self-care (01) ==
PROVIDERS: Physician Assistant; Emergency Provider Emergency Medicine
DX: R11.2 Nausea with vomiting, unspecified (principal); F10.129 Alcohol abuse with intoxication, unspecified; Y90.2 Blood alcohol level of 40-59 mg/100 ml; F12.90 Cannabis use, unspecified, uncomplicated; R10.13 Epigastric pain
CPT/HCPCS: 36415; 80053; 80307; 81001; 81025; 83690; 83735; 85025; 87086; 96361; 96374; 96375; 96376; 99284; J1200; J2405; J2765

== ENCOUNTER → 2025-04-03 09:38 | Outpatient (BNVA) | payer SELFPAY | PROVIDERS: Visit Provider Physician Assistant | DX: Z02.1 Encounter for pre-employment examination (principal); R76.11 Nonspecific reaction to tuberculin skin test without active tuberculosis ==

== ENCOUNTER 2025-04-25 12:10 | Emergency (ER) | payer OTHER, SELFPAY ==
--- NOTE | ~2025-04-25 | XR_ITS ---
EXAMINATION: XR CHEST CLINICAL INFORMATION: chest pain, SOB COMPARISON: None available. TECHNIQUE: 2 views of the chest were obtained. FINDINGS: The cardiac, hilar, and mediastinal contours are normal. The lungs are clear bilaterally. There is no pneumothorax or pleural effusion. There is no focal osseous or soft tissue abnormality. XR/XR chest 2V IMPRESSION: Normal chest. Electronically signed by: Jorge L Ennis MD 04/25/2025 01:58 PM EDT
[2025-04-25 12:17] VITALS: BP 132/79; PULSE 65; RESP 18; TEMP 36.9; O2SAT 98; BMI 17.5
--- NOTE | 2025-04-25 12:17 | ED_ITS ---
HPI - General Adult General Chief complaint: Upper Respiratory Symptoms Stated complaint: Dizziness, not feeling well Time Seen by Provider: 04/25/25 16:05 Source: patient Mode of arrival: ambulatory Limitations: no limitations History of Present Illness ED Provider: Madeleine Mayes PA-C HPI narrative: Patient is a 24 year old assigned female at with no reported medical history presenting to the emergency department today with dizziness and feeling generally unwell. Patient states that starting yesterday she started to feel unwell with dizziness. Patient states that her daughter has rhinovirus at home. Patient denies any other complaints at this time. Related Data Previous Rx's ?Medication ?Instructions ?Recorded ondansetron 4 mg disintegrating 4 mg PO Q8H PRN nausea and 01/31/23 tablet vomiting #8 tabs Allergies Allergy/AdvReac Type Severity Reaction Status Date / Time No Known Allergies Allergy Verified 04/25/25 12:20 Review of Systems 2 Constitutional: Constitutional: Reports as per HPI Eyes: Eyes: Reports as per HPI ENT: Reports as per HPI Cardiovascular: Cardiovascular: Reports as per HPI Respiratory: Respiratory: Reports as per HPI Gastrointestinal: Gastrointestinal: Reports as per HPI Genitourinary: Genitourinary: Reports as per HPI Musculoskeletal: Musculoskeletal: Reports as per HPI Integumentary/Breasts: Skin/Breast: Reports as per HPI Neurologic: Reports as per HPI Psychiatric: Psychiatric: Reports as per HPI Endocrine: Endocrine: Reports as per HPI Hematologic/Lymphatic: Hematologic/Lymphatic: Reports as per HPI Allergic/Immunologic: Allergic/Immunologic: Reports as per HPI [facility], [facility] Past Medical History Attestation statement: The following information was validated with the patient. Source: old records reviewed and nursing notes reviewed Medical History No known health problems Social History Social History Alcohol intake: never Advance Directives: No Advance Directives Information Provided: Yes Physical Exam ED Vital Signs: Vital Signs - 24 hr 04/25/25 12:17 Temperature 98.4 F Pulse Rate 65 Respiratory Rate 18 Blood Pressure 132/79 Pulse Oximetry 98 Oxygen Delivery Method Room Air BMI result Body Mass Index 17.5 Const General: cooperative, no acute distress, alert and awake Nutritional Appearance: well nourished Orientation/consciousness: patient oriented x3 HENMT Head: Yes normal to inspection and Yes atraumatic Ears: hearing grossly normal bilaterally and external ears normal General nose exam: Normal external nose present, no nasal discharge noted and no epistaxis Face and sinus: Yes normal facial exam, No abrasion and No laceration Mouth: Normal oral and palatal mucosa present, no drooling and no muffled voice Eyes General: appearance normal, both eyes and all related structures Periorbital: periorbital findings normal Eyelids: Yes eyelids normal Conjunctivae: conjunctivae normal Pupils: Equal, round and reactive pupils present EOM: EOMs intact bilaterally Neck Neck: Yes normal visual inspection and Yes full ROM Resp Effort & Inspection: normal respiratory effort and able to speak in complete sentences Neuro General: patient oriented x3, moves all extremities and CN's II-XI intact bilaterally Cranial nerves: Yes Equal, round and reactive pupils present Cognition (Neuro): normal cognition Extrem General: Yes normal to inspection, Yes full ROM and Yes capillary refill normal Psych Appearance: grossly normal Mental Status: mental status grossly normal Affect: normal affect Attitude: cooperative Thought process: Normal thought process present Thought content: Normal thought content present Insight: Good insight present (Psych) Course Course Course Narrative: This is an RME: Additional HPI, ROS, PE not included below will be deferred to primary provider. RME assessment and note performed by: Tammy Asencio PA-C This is a 4-[age]-female, with no known medical problems, who presents to the ER with complaints of shortness of breath, congestion x 1 day. Reports pain in her lungs. Decreased PO intake. Daughter recently tested positive for rhinovirus. Plan: Labs, EKG, cxr, further ER eval needed Medical Decision Making Medical Decision Making MDM Narrative: Patient is a 24 year old assigned female at with no reported medical history presenting to the emergency department today with dizziness and feeling generally unwell. Patient's physical exam was unremarkable. Patient's blood work was unremarkable. Patient's urine showed no acute process. Patient's EKG was unremarkable. Patient's chest x-ray showed no acute process. I explained my physical exam findings as well as all test results to the patient. I answered all questions asked by the patient. Patient's clinical presentation is most consistent with a viral illness. I stressed the importance of the patient taking her medication as directed (either prescribed or as the over the counter packaging recommends). I stressed the importance of the patient following up with her primary care provider. I stressed the importance of the patient returning to the emergency department immediately if her symptoms were to worsen or if she were to develop any dizziness, shortness of breath, difficulty breathing, chest pain, blurry vision, loss of vision, nausea, vomiting, abdominal pain, fever, chills, back pain, or any other complaints. Patient verbalized agreement and understanding with this treatment plan and discharge. Differential Diagnosis Differential Diagnoses: The differential diagnosis associated with the presentation includes Viral illness Dizziness Admission/Observation Consideration of admission/observation: Escalation of care including admission/observation considered Patient would have been admitted to the hospital had her work up had any findings where hospital admission was appropriate and her clinical presentation warranted hospital admission. Lab Data [facility] Lab Attestation statement: I reviewed the patient's lab results. My interpretation of these results are in the [facility] Rationale portion of this note. 04/25/25 12:34 04/25/25 12:34 Labs: Lab Results 04/25/25 Range/Units 12:34 WBC 5.2 (4.8-10.8) X10*3/uL RBC 4.42 (4.20-5.50) X10*6/uL Hgb 13.0 (12.0-16.0) g/dl Hct 37.5 (37.0-47.0) % MCV 84.8 (80.0-98.0) fL MCH 29.4 (27.0-33.0) pg MCHC 34.7 (31.0-35.0) g/dl RDW 13.2 (11.0-16.0) % Plt Count 235 (160-400) X10*3/uL MPV 9.7 (9.4-12.3) fL Immature Gran % (Auto) 0.2 (0.0-0.4) % Neut % (Auto) 41.8 L (45-73) % Lymph % (Auto) 40.0 (20-40) % Davis % (Auto) 14.1 H (2-11) % Eos % (Auto) 2.9 (0-4) % Baso % (Auto) 1.0 (0-2) % Lymph # (Auto) 2.1 (1.2-4.9) X10*3/uL Davis # (Auto) 0.7 (0.1-1.2) X10*3/uL Eos # (Auto) 0.2 (0.0-0.4) X10*3/uL Baso # (Auto) 0.1 (0.0-0.2) X10*3/uL Abs Immat Gran (auto) 0.01 (0.00-0.03) X10*3/uL Absolute Neuts (auto) 2.2 (2.0-8.3) x10*3/uL Absolute Nucleated RBC 0.000 (0.0-0.012) X10*3/uL Nucleated RBC % (auto) 0.0 (0.0-0.2) /100WBC Sodium 141 (135-145) mmol/L Potassium 3.4 (3.3-5.1) mmol/L Chloride 113 H (96-108) mmol/L Carbon Dioxide 22 (22-29) mmol/L Anion Gap 9 L (12-20) BUN 9 (9-16) mg/dL Creatinine 0.62 (0.5-1.4) mg/dL Estim Creat Clear Calc 97.4 Estimated GFR > 60 Random Glucose 103 (60-115) mg/dL Calcium 9.0 D (8.4-10.2) mg/dL Total Bilirubin 0.5 (0.0-1.0) mg/dL Direct Bilirubin 0.2 (0.0-0.5) mg/dL AST 25 (5-31) U/L ALT 25 (0-31) U/L Alkaline Phosphatase 90 (39-117) U/L Total Protein 7.1 (6.5-8.0) g/dL Albumin 4.9 (3.5-5.0) g/dL Beta HCG, Quant < 2 mIU/mL COVID-19 (MERVAT) Negative (Negative) COVID-19 Clin Com See Note Influenza Type A (TIFFANIE) Negative (Negative) Influenza Type B (TIFFANIE) Negative (Negative) Influenza A & B Note See Note Independent Interpretation I performed an independent interpretation of an: EKG and Plain X-Ray Interpretation: My interpretation is in agreement with the radiologist's impression of this imaging study. L Reason for Exam: chest pain, SOB EXAMINATION: XR CHEST CLINICAL INFORMATION: chest pain, SOB COMPARISON: None available. TECHNIQUE: 2 views of the chest were obtained. FINDINGS: The cardiac, hilar, and mediastinal contours are normal. The lungs are clear bilaterally. There is no pneumothorax or pleural effusion. There is no focal osseous or soft tissue abnormality. XR/XR chest 2V IMPRESSION: Normal chest. Electronically signed by: Jorge L Ennis MD 04/25/2025 01:58 PM EDT Dictated By: Jorge L Ennis MD Signed By: Electronically signed by Jorge L Ennis MD 04/25/25 1358 I independently interpreted this EKG and am in agreement with the below findings: Vent. Rate: 62 BPM Atrial Rate: 62 BPM P-R Int: 220 ms QRS Dur: 72 ms QT Int: 386 ms P-R-T Axes: 88 77 58 degrees QTcB Int: 391 ms Sinus rhythm with sinus arrhythmia with 1st degree A-V block Possible Left atrial enlargement No previous ECGs available DD/ 1228 Radiology Impression Discussion of test interpretation with radiology: I have reviewed the radiologist's reading. Discharge Plan Discharge Clinical Impression: Viral illness Patient Disposition: Home, Self-Care Instructions: Viral Syndrome (ED) Additional Instructions: Your work up today was unremarkable - there is no evidence of an EMERGENT process causing your symptoms. I believe you have a viral illness. Please stay hydrated. IF you are prescribed home medications and/or you are taking over the counter medications at home - it is very important you continue to do so as prescribed / directed unless told otherwise. Follow up with a primary care provider. Return to the emergency department immediately if your symptoms worsen or if you develop any numbness, tingling, dizziness, shortness of breath, difficulty breathing, chest pain, blurry vision, loss of vision, nausea, vomiting, abdominal pain, fever, chills, back pain, or any other complaints. L If you do not have a primary care provider - call any of the below numbers to establish and follow up with a primary care provider. [facility] Primary Care ([place]) [phone] [place] [address] [place], [address] [facility] Primary Care ([address]) [phone] [address] [facility], [address] [facility], [address] [facility] Primary Care ([address]) [phone] [address] [facility], [address] [facility], [address] [facility] Primary Care ([place]) [phone] [place] [address], [address] [facility], [address] [facility] Family Medicine [phone] [address] [facility], [address] Please see the information below about our Patient Portal. If you are not yet enrolled in the [facility] Patient Portal, you will receive an enrollment email invitation following your visit to any [facility] setting. You may also self-enroll in the Patient Portal by visiting our website: [email or web address] The following information is required to access the Patient Portal: - Your [facility] Medical Record Number - Your personal home email address (must match what is in your electronic medical record, Registration staff can assist with this) - Name - Date of Capabilities of the Patient Portal: - Message some providers - View upcoming appointments - Access your health summary, medical history, and visit history - View current conditions and allergies - View procedure and lab results - View your medications, including guidelines, side effects, and precautions - Complete pre-appointment questionnaires requested by your provider - Ready summary reports of your office visits and procedures To access the Patient Portal Mobile [employer], follow these directions: - Search [employer] in the [employer] Store or [employer] Store - Download the [employer] - Search for [facility] - Enter your login/password Prescriptions: No Action ondansetron 4 mg tablet,disintegrating 4 mg PO Q8H PRN (Reason: nausea and vomiting) Qty: 8 0RF Print Language: Vietnamese
--- NOTE | 2025-04-25 12:18 | ECG_ITS ---
Test Reason : CP Blood Pressure : */* mmHG Vent. Rate : 62 BPM Atrial Rate : 62 BPM P-R Int : 220 ms QRS Dur : 72 ms QT Int : 386 ms P-R-T Axes : 88 77 58 degrees QTcB Int : 391 ms Sinus rhythm with sinus arrhythmia with 1st degree A-V block Possible Left atrial enlargement Septal infarct , age undetermined Abnormal ECG No previous ECGs available Referred By: Tammy Asencio Electronically Signed By: RANDY PATTON
[2025-04-25 12:42] LABS: MANUAL DIFF FLAG NO
[2025-04-25 12:45] LABS: Hematocrit 37.5 % (37.0-47.0); Hemoglobin 13.0 g/dl (12.0-16.0); Imm Gran Abs Auto 0.01 X10*3/uL (0.00-0.03); Imm Gran Pct Auto 0.2 % (0.0-0.4); Lymphocytes Absolute Auto 2.1 X10*3/uL (1.2-4.9); Mean Corpuscular HGB Conc 34.7 g/dl (31.0-35.0); Mean Corpuscular Hemoglobin 29.4 pg (27.0-33.0); Mean Corpuscular Volume 84.8 fL (80.0-98.0); NRBC Abs Auto 0.000 X10*3/uL (0.0-0.012); NRBC Pct Auto 0.0 /100WBC (0.0-0.2); Platelet Count 235 X10*3/uL (160-400); Red Blood Count 4.42 X10*6/uL (4.20-5.50); White Blood Count 5.2 X10*3/uL (4.8-10.8)
[2025-04-25 13:03] LABS: COVID-19 Test Negative (Negative); IDNOW Serial# 55D5AD1C
[2025-04-25 13:05] LABS: IDNOW Serial# 58CA691E; Influenza B2 Negative (Negative)
[2025-04-25 13:17] LABS: Alanine Aminotransferase 25 U/L (0-31); Albumin Level 4.9 g/dL (3.5-5.0); Alkaline Phosphatase 90 U/L (39-117); Anion Gap 9 (12-20); Aspartate Amino Transferase 25 U/L (5-31); Blood Urea Nitrogen 9 mg/dL (9-16); Calcium 9.0 mg/dL (8.4-10.2); Carbon Dioxide 22 mmol/L (22-29); Chloride 113 mmol/L (96-108); Creatinine Clr Calc Pharmacy 97.4; Estimated Glomerular Filt Rate > 60; Potassium 3.4 mmol/L (3.3-5.1); Sodium 141 mmol/L (135-145); Total Protein 7.1 g/dL (6.5-8.0)
--- OUTSIDE RECORDS SUMMARY | 2025-04-25 16:52 | XMS_ITS | Encounter Summary ---
Author Organization [facility] Address [address] [place] [address] Phone Care Team Providers Care [employer] Team Member Name Role Phone Provider, Amish OQUENDO Primary Care Provider [phone] Encounter Details Date Type Department Care Team (Late st Contact Info) Description 10/08/[address] [facility] Family Medicine [address] [place] [address] Family Medicine, Physician [address], [place] [address] Social History Tobacco Use Types Packs/Day Years Used Date Smoking Tobacco: Never Assessed Comments Unknown Sex and Gender Information Value Date Recorded Sex Assigned at Female 12/14/2021 1:30 PM EDT Legal Sex Female 5:23 PM EDT Gender Identity Female 12/14/2021 1:30 PM EDT Sexual Orientation Straight 12/14/2021 1: 30 PM EDT documented as of this encounter Plan of Treatment Not on file documented as of this encounter Visit Diagnoses Not on filedocumented in this encounter Care Teams [employer] Team Member Relationship Specialty Start Date End Date Provider, MD Amish [address] [place] [address] PCP - General Pediatrics 11/03/23 11/03/23 documented as of this encounter
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
--- OUTSIDE RECORDS SUMMARY | 2025-04-25 16:52 | XMS_ITS | Encounter Summary ---
Author Organization [facility] Address [address] [place] [address] Phone Care Team Providers Care Core Sucker Name Role Phone Provider, Amish OQUENDO Primary Care Provider [phone] Encounter Details Date Type Department Care Team ([facility] st Contact Info) Description 03/24/2017 Conversion Encounter [address] [address] Social History Tobacco Use Types Packs/Day Years Used Date Smoking Tobacco: Never Comments:Never smoker Comments Unknown Sex and Gender Information Value [...] on filedocumented in this encounter Care Teams Core Sucker Relationship Specialty Start Date End Date Provider, MD Amish [address] [place] [id number] PCP - General Pediatrics 11/03/23 11/03/23 documented as of this encounter
--- OUTSIDE RECORDS SUMMARY | 2025-04-25 16:52 | XMS_ITS | Encounter Summary ---
Author Organization [facility] Address [address] [place] [address] Phone Care Team Providers Care Deadener Name Role Phone Provider, Amish OQUENDO Primary Care Provider [phone] Encounter Details Date Type Department Care Team (Late st Contact Info) Description 12/18/2009 Documentation [facility] [place] Medicine [address] [place], [place] [id number] Family Medicine, Physician [address] [id number] Social History Tobacco Use Types Packs/Day Years [...] on filedocumented in this encounter Care Teams Deadener Relationship Specialty Start Date End Date Provider, MD Amish [address] [place] [address] PCP - General Pediatrics 11/03/23 11/03/23 documented as of this encounter
--- OUTSIDE RECORDS SUMMARY | 2025-04-25 16:52 | XMS_ITS | Encounter Summary ---
Author Organization [facility] Address [address] [place] [address] Phone Care Team Providers Care Assistant Teacher Name Role Phone Provider, Amish OQUENDO Primary Care Provider [phone] Encounter Details Date Type Department Care Team (Late st Contact Info) Description 03/19/2013 Documentation [facility] [place] Family Medicine [address] [place] [address] Family Medicine, Physician [address], [place] [phone] Social History Tobacco Use Types Packs/Day Years [...] on filedocumented in this encounter Care Teams Assistant Teacher Relationship Specialty Start Date End Date Provider, MD Amish [address] [place] [address] PCP - General Pediatrics 11/03/23 11/03/23 documented as of this encounter
--- OUTSIDE RECORDS SUMMARY | 2025-04-25 16:52 | XMS_ITS | Encounter Summary ---
Author Organization [facility] Address [address] [place] [address] Phone Care Team Providers Care Lead Java J2Ee Developer Name Role Phone Provider, Aimsh OQUENDO Primary Care Provider Encounter Details Date Type Department Care Team (Late st Contact Info) Description 10/21/2010 Documentation [facility] [place] Family Medicine [address] [place] [address] Family Medicine, Physician [address] [place] [place] [phone] Social History Tobacco Use Types Packs/Day Years [...] on filedocumented in this encounter Care Teams Lead Java J2Ee Developer Relationship Specialty Start Date End Date Provider, MD Amish [address] [place] [address] PCP - General Pediatrics 11/03/23 11/03/23 documented as of this encounter
--- OUTSIDE RECORDS SUMMARY | 2025-04-25 16:52 | XMS_ITS | Clinical Summary ---
Author Organization [facility] Address [address] [place] [address] Phone Care Team Providers Care Rn New Grad Name Role Phone Barb Gonzales MD Primary Care Provider [phone] Allergies No known active allergies Medications medroxyPROGESTE Bob 150 mg/mL injection Inject 1 mL (150 mg total) into the shoulder, thigh, or buttocks once every twelve (12) weeks. 1 mL 3 01/02/2025 Active Hospital, Clinic, or Other Facility Administered Medication Ordered Dose Route Frequency Start Date End Date Status medroxyPROGESTERone (DEPO-PROVERA) injection 150 mgIndications:Surveill ance of contraceptive injection 150 mg IM Every 3 months 01/07/2025 01/02/2026 Active medroxyPROGESTERone (DEPO-PROVERA) injection 150 mgIndications:Encounte r for management and injection of depo-Provera 150 mg IM Once 04/02/2025 04/02/2025 Ended Active Problems Problem Noted Date Diagnosed Date LGSIL on Pap smear of cervix 01/02/2025 Underweight 01/02/2025 Anxiety 02/14/2023 Overview (01/02/2025): 02/14/2023 : Warm handoff to Crystal Burger PhD today. Patient is using marijuana for management of anxiety. Substance use was discussed at length today. Have advised patient to start working with a therapist to address her anxiety and her substance abuse. 02/14/23 - VSK - Pt reports social anxiety and difficulties with anger management when stressed. Unintentional weight loss 12/14/2021 Allergic rhinitis 10/04/2013 Overview (01/02/2025): claritin in the summer season very effective Mild intermittent asthma 07/16/2009 Overview (01/02/2025): Albuterol prn- most often in summer season Encounters Date Type Department Care Team Description 04/02/2025 2:00 PM EDT Clinical Support Obstetrics and Gynecology [address] [address] Encounter for management and injection of depo-Provera (Primary Dx) 03/01/2025 Telephone Obstetrics & Gynecology - [facility] [address] [place] [address] Candi Blanco CNM from Last 3 Months Immunizations Name Administration Dates Next Due DTaP 5 pertussis antigens, D iptheria Tetanus acellular pertussis (Daptacel) 6wks to less than 7yo 06/20/2007,02/28/2004,09/03/2003,02/26,2002 H1N1 All Forms 07/16/2009 HPV, Quadrivalent 10/09/2014,12/21/2013,10/04/19 14 Hepatitis A Pediatric (Havri x; Vaqta) 12mo to less than 19yo 08/07/2015,10/09/2014 Hepatitis B Pediatric (Enger ix B; Recombivax HB) to less than 20 yo 02/28/2004,10/07/2003,2002 HiB PRP-T conjugate (Acthib, Hiberix) 6wks and older 02/28/2004,09/03/2003,02/26/2003,11/09 IPV Inactivated polio (Ipol) 6wks and older 06/20/2007,10/07/2003,02/26/2003,11/09 Influenza Quadrivalent, 0.5m l, preservative free (Fluarix; FluLaval; Fluzone) ages 6mo and older (Afluria) 3yo and older 05/13/2020,06/12/2019,06/20/2018,10/04 Influenza Quadrivalent, with preservative (Fluzone; Afluria) 6mo and older 08/07/2015,10/09/2014 Influenza Split 10/04/2012,09/02/2011,07/23/2010 Influenza trivalent, with pr eservative (Fluzone; Afluria) 6mo and older 07/16/2009,06/21/2008,06/20/2007,09/15 MMR, measles mumps and rubel la Live (Priorix; M-M-R II) 12mo and older 09/03/2003 MMRV, measles mumps rubella and varicella live (Proquad) 4yo to less than 7yo 06/20/2007 Meningococcal B, Recombinant (Trumenba) 16yo to less than 24yo 08/17/2021,07/23/2020 Meningococcal MCV4P 06/21/2019,10/04/2013 PPD Test 08/02/2023 Pneumococcal Conjugate Vacci ne, 7 Valent 09/03/2003,02/26/2003,2002 Tdap Tetanus diptheria acell ular pertussis (Boostrix; Adacel) 7yo and older 01/24/2024,10/04/2013 Varicella live (Varivax) 12m o and older 09/03/2003 Medical History Medical History Date Comments Patient denies medical problems Family History Relation Name Status Comments Father Alive Mother Alive Social History Tobacco Use Types Packs/Day Years Used Date Smoking Tobacco: Never Smokeless Tobacco: Never Alcohol Use Standard Drinks/Week Comments No 0 (1 standard drink = 0.6 oz pur e alcohol) Comments Unknown Sex and Gender Information Value Date Recorded Sex Assigned at Not on file Legal Sex Female 4:51 AM EST Gender Identity Not on file Sexual Orientation Not on file Obstetrics History Para Term AB IAB SAB Ectopic Multiple Livin g Live Births 1 1 1 0 0 0 1 1 Date Outcome GA Total Labor Labor/2nd/3rd Weight Sex Type Anes PTL Willow A1 A5 Name Clin 024 Term 38w 5d F Vag-S pont N Living Delivery Location:[facility] Last Filed Vital Signs Vital Sign Reading Time Taken Comments Blood Pressure 106/55 04/02/2025 2:10 PM EDT Pulse 66 04/02/2025 2:10 PM EDT Temperature - - Respiratory Rate 14 04/02/2025 2:10 PM EDT Oxygen Saturation - - Inhaled Oxygen Concentration - - Weight 44.4 kg (97 lb 12.8 oz) 04/02/2025 2:10 P M EDT Height 145 cm (4' 9.09 ) 04/02/2025 2:10 PM EDT Body Mass Index 21.1 04/02/2025 2:10 PM EDT Plan of Treatment Upcoming Encounters Date Type Department Care Team (Late st Contact Info) Description 06/26/2025 1:00 PM EST Clinical Support Obstetrics and Gynecology [address] [address] Health Maintenance Due Date Last Done Comments Gonorrhea/Chlamydia Screening 2002 Pneumococcal Vaccine: Pediatrics (0 to 5 Years) and At-Risk Patients (6 to 49 Years) (1 of 1 - PPSV23) 2008 09/03/2003, 02/26/2003, 2002 HIV Screening 03/06/2024 Hepatitis C Screening 03/06/2024 Social Influencers of Health Screening 03/06/2024 Depression Screening 08/08/2024 COVID-19 Vaccine ( season) 2025 Influenza Vaccine (#1) 2025 , 06/12/2019, 06/20/2018, Additional history exists Cervical Cancer Screening: Pap Smear 12/15/2026 12/16/2023, 12/16/2023 DTaP,Tdap,and Td Vaccines (8 - Td or Tdap) 01/23/2034 01/24/2024, 10/04/2013, 06/20/2007, Additional history exists HIB Vaccines Completed 02/28/2004, 08/09, 02/26/2003, Additional history exists Hepatitis B Vaccines Completed 02/28/2004, 10/07/2003, 2002 IPV Vaccines Completed 06/20/2007, 08/2003, 02/26/2003, Additional history exists MMR Vaccines Completed 06/20/2007, 09/03/2003 Varicella Vaccines Completed 06/20/2007, 09/03/2003 HPV Vaccines Completed 10/09/2014, 12/06, 10/04/2013 Hepatitis A Vaccines Completed 08/07/2015, 10/10/19 15 Meningococcal ACWY Vaccine Completed 06/21/2019, Meningococcal B Vaccine Completed 08/17/2021, 07/23 RSV Immunization Patients Under 20 months Aged Out No longer eligible based on patient's age to complete this topic Procedures Procedure Name Priority Date/Time Associated Diagnosis Comments EXTERNAL PAP SMEAR Routine 12/16/2023 12:00 AM EDT from Last 3 Months or Most Recently Relevant to Health Maintenance Results * (ABNORMAL) External PAP smear (12/16/2023 12:00 AM EDT) us Historical Provider LAB CYTOLOGY ORDERABLES F inal Result [facility] [address] [place], [place] [id number] from Last 3 Months or Most Recently Relevant to Health Maintenance Insurance [facility] [employer] Care Teams Rn New Grad Relationship Specialty Start Date End Date Barb Gonzales MD [address] [place] [address] PCP - General 03/05/19
--- OUTSIDE RECORDS SUMMARY | 2025-04-25 16:52 | XMS_ITS | Encounter Summary ---
Author Organization [facility] Address [address] [place] [address] Phone Care Team Providers Care Digester Hand Name Role Phone Provider, Amish OQUENDO Primary Care Provider [phone] Encounter Details Date Type Department Care Team (Late st Contact Info) Description 09/21/2010 Documentation [facility] [place] [address] [place] [address] Family Medicine, Physician [address], [place] [phone] Social History Tobacco Use Types Packs/Day Years [...] on filedocumented in this encounter Care Teams Digester Hand Relationship Specialty Start Date End Date Provider, MD Amish [address] [place] [address] PCP - General Pediatrics 11/03/23 11/03/23 documented as of this encounter
[2025-04-25 17:11] VITALS: BP 132/79; PULSE 65; RESP 18; TEMP 36.9; O2SAT 98
== END 2025-04-25 17:11 | disposition home or self-care (01) ==
PROVIDERS: Physician Assistant Medical; Emergency Provider Emergency Medicine
DX: B34.8 Other viral infections of unspecified site (principal); R42 Dizziness and giddiness
CPT/HCPCS: 71046; 80048; 80076; 84702; 85025; 87502; 87635; 93005; 99283

== ENCOUNTER → 2025-04-25 12:18 | Outpatient (BNV) | payer OTHER, SELFPAY | PROVIDERS: Emergency Provider Emergency Medicine; Visit Provider Internal Medicine | DX: I44.0 Atrioventricular block, first degree (principal); I49.9 Cardiac arrhythmia, unspecified | CPT/HCPCS: 93010 ==

== ENCOUNTER → 2025-04-25 12:18 | Outpatient (BNV) | payer SELFPAY | PROVIDERS: Visit Provider Radiology Diagnostic Radiology | DX: R07.9 Chest pain, unspecified (principal); R06.02 Shortness of breath | CPT/HCPCS: 71046 ==

== ENCOUNTER 2025-05-14 13:32 | Outpatient (REF) | payer OTHER, SELFPAY ==
[2025-05-14 14:48] LABS: MANUAL DIFF FLAG NO
[2025-05-14 15:12] LABS: Hematocrit 40.1 % (37.0-47.0); Hemoglobin 13.1 g/dl (12.0-16.0); Imm Gran Abs Auto 0.02 X10*3/uL (0.00-0.03); Imm Gran Pct Auto 0.3 % (0.0-0.4); Lymphocytes Absolute Auto 2.2 X10*3/uL (1.2-4.9); Mean Corpuscular HGB Conc 32.7 g/dl (31.0-35.0); Mean Corpuscular Hemoglobin 28.8 pg (27.0-33.0); Mean Corpuscular Volume 88.1 fL (80.0-98.0); NRBC Abs Auto 0.000 X10*3/uL (0.0-0.012); NRBC Pct Auto 0.0 /100WBC (0.0-0.2); Platelet Count 236 X10*3/uL (160-400); Red Blood Count 4.55 X10*6/uL (4.20-5.50); White Blood Count 5.9 X10*3/uL (4.8-10.8)
[2025-05-14 15:43] LABS: Alanine Aminotransferase 32 U/L (0-31); Albumin Level 5.1 g/dL (3.5-5.0); Alkaline Phosphatase 92 U/L (39-117); Anion Gap 11 (12-20); Aspartate Amino Transferase 23 U/L (5-31); Blood Urea Nitrogen 9 mg/dL (9-16); Calcium 9.2 mg/dL (8.4-10.2); Carbon Dioxide 25 mmol/L (22-29); Chloride 110 mmol/L (96-108); Estimated Glomerular Filt Rate > 60; Potassium 3.9 mmol/L (3.3-5.1); Sodium 142 mmol/L (135-145); Total Protein 7.6 g/dL (6.5-8.0)
[2025-05-14 16:08] LABS: Folate 8.0 ng/mL (> or = 4.0); Vitamin B12 393 pg/mL (200-900)
== END 2025-05-14 13:33 | disposition home or self-care (01) ==
LOC: HO.LAB 13:32
DX: Z13.29 Encounter for screening for other suspected endocrine disorder (principal); Z13.21 Encounter for screening for nutritional disorder; Z13.1 Encounter for screening for diabetes mellitus; Z13.0 Encounter for screening for diseases of the blood and blood-forming organs and certain disorders involving the immune mechanism; F32.A Depression, unspecified; F41.9 Anxiety disorder, unspecified; Z79.899 Other long term (current) drug therapy
CPT/HCPCS: 36415; 80053; 82306; 82607; 82746; 84443; 85025; 96127; 99202

== ENCOUNTER 2025-05-14 13:32 | Outpatient (AMB) | payer OTHER, SELFPAY ==
[2025-05-14 13:35] VITALS: BP 100/70; PULSE 81; RESP 18; TEMP 36.2; O2SAT 97; BMI 18.0
--- NOTE | 2025-05-14 13:35 | MHC.PC.OV ---
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: No Accompanied by: Self / Same As Patient Allergies No Known Allergies Allergy (Verified 05/14/25 13:47) Medication List - Last Reconciled 05/14/25 by Nabila Lin PA-C medroxyprogesterone (Depo-Provera) 150 mg IM [id number] Tobacco use date assessed: 05/14/25 Dental Screening Dental Screen Date: 05/14/25 Did you have a dental visit in the last 12 months?: Yes Did you have a dental problem in the last 6 months where you did not have access to dental care?: No Was dental information given to patient?: Patient has dentist HPI adult school teacher anemic HPI Details 24 year old female coming to the office for the first time. Presenting for a wellness visit and management of depression and anxiety. depression began after the of her daughter last year, characterized by feelings of being overwhelmed, crying spells, and self-isolation. The patient reports improvement over time but continues to experience emotional distress and guilt. Anxiety is described as feeling overwhelmed, with episodes of crying and difficulty managing emotions, particularly in family interactions. The patient has not sought medication for anxiety but is open to counseling to help manage her symptoms. Depression symptoms include lack of motivation, fatigue, and feelings of inadequacy as a mother and daughter. The patient reports a history of asthma, which she has outgrown, and a broken finger for which surgery was advised but not pursued. [facility] [place] for injections and UTD on paps - baby last year [facility] Medical History Asthma No known health problems Social History Household Members: Children Housing: Apartment Alcohol intake: former Patient Tobacco Use Status: Never used Tobacco e-Cigarette/Vaping Use: Never Used Current occupational status: employed Current occupation: [employer] Cognitive needs: No Hearing needs: No Vision needs: No Female Reproductive History Menstrual control method: progesterone injection Questionnaire PHQ-9 Over the last 2 weeks, how often have you been bothered by any of the following problems? 1. Little interest or pleasure in doing things: several days 2. Feeling down, depressed, or hopeless: several days 3. Trouble falling or staying asleep, or sleeping too much: several days 4. Feeling tired or having little energy: several days 5. Poor appetite or overeating: not at all 6. Feeling bad about yourself - or that you are a failure or have let yourself or your family down: several days 7. Trouble concentrating on things, such as reading the newspaper or watching television: not at all 8. Moving or speaking so slowly that other people could have noticed. Or the opposite - being so fidgety or restless that you have been moving around a lot more than usual: not at all 9. Thoughts that you would be better off or of hurting yourself in some way: not at all Total score: 5 Depression Screening Interpretation: Positive (counseling referral placed) Depression Screening Follow-up: Existing condition Depression Screening Done: Yes 21106 - PHQ-9 Billing: Yes Source: Developed by Drs. Dann Osorio, Jeannine Green, Jim Fields and colleagues, with an educational nolberto from [employer] Thrive Questionnaire Date Thrive assessed: 05/14/25 I am a: Patient What is your living situation today?: I have a steady place to live Within the past 12 months, did the food you bought not last and you didn't have the money to get more?: Never true Within the past 12 months, did you worry whether your food would run out before you got money to buy more?: Never true Do you have trouble paying for medicines?: No Do you have trouble getting transportation to medical appointments?: No Do you have trouble paying your heating and electricity bill?: No Do you have trouble taking care of your child, family member or friend?: No Do you have trouble with day-to-day activities such as bathing, preparing meals, shopping, managing finances, etc.?: No Are you currently unemployed and looking for a job?: No Are you interested in more education?: Yes Please select the resources that you would like help with: None Currently or been in a relationship where the following occur: No concerns reported THRIVE Score: 0 AUDIT C Alcohol Use Questionnaire (AUDIT-C) 1. How often do you have a drink containing alcohol?: Never Total Score: 0 DANILO-7 AMB Questionnaire DANILO-7 Date DANILO - 7 assessed: 05/14/25 Feeling nervous, anxious, or on edge: 1 = Several days Not being able to stop or control worryin = Not at all Worrying too much about different things: 1 = Several days Trouble relaxin = Not at all Being so restless that it is hard to sit still: 0 = Not at all Becoming easily annoyed or irritable: 2 = More than half the days Feeling afraid as if something awful might happen: 0 = Not at all Total DANILO-7 score (0-4 normal; 5-9 mild; 10-14 moderate; 15-21 severe): 4 Source: Developed by Drs. Dann Osorio, Jeannine Green, Jim Fields and colleagues, with an educational nolberto from [employer] DANILO-7 Assessment Billing DANILO-7 Assessment Tool: DANILO-7 Assessment 98632 Review of Systems Const Denies body aches, Denies chills, Denies fever(s), Denies headache(s) and Denies poor appetite Eyes Reports no additional complaints ENT Denies dysphagia, Denies dizziness, Denies headache(s) and Denies odynophagia Card Denies chest pain, Denies syncope, Denies edema, Denies irregular heart rhythm, Denies lightheadedness and Denies dyspnea Resp Denies cough and Denies dyspnea GI Denies abdominal pain, Denies constipation, Denies dysphagia, Denies diarrhea, Denies nausea, Denies odynophagia and Denies vomiting Reports no additional complaints Musc Reports no additional complaints and Denies abnormal gait Skin/Breast Reports system reviewed and no additional complaints, except as documented Neuro Denies abnormal gait, Denies dizziness, Denies syncope and Denies headache(s) Psych Reports no additional complaints Physical exam (Primary Care) Vital Signs: Last Vital Signs Temp 97.1 F 05/14/25 13:35 Pulse 81 05/14/25 13:35 Resp 18 05/14/25 13:35 BP 100/70 05/14/25 13:35 Pulse Ox 97 05/14/25 13:35 Oxygen Delivery Method Room Air 05/14/25 13:35 BMI result Body Mass Index 18.0 Tobacco/Smoking Status: Tobacco use Status Tobacco use date assessed 05/14/25 05/14/25 13:47 Patient Tobacco Use Status Never used Tobacco 05/14/25 13:47 e-Cigarette/Vaping Use Never Used 05/14/25 13:47 PHQ-9: PHQ-9 Score PHQ-9: Total score 5 05/15/25 08:03 Depression Screening Interpretation: Positive (counseling referral placed) Depression Screening Follow-up: Existing condition Thrive Assessment: Date of Thrive Assessment Date Thrive assessed 05/14/25 05/14/25 13:47 Currently or been in a relationship where the following occur: No concerns reported Const General: cooperative, healthy appearing, comfortable and no acute distress Orientation/consciousness: patient oriented x3 HENMT Head: Yes normocephalic Ears: hearing grossly normal bilaterally General nose exam: Normal external nose present Eyes General: appearance normal, both eyes and all related structures Conjunctivae: conjunctivae normal Neck Neck: Yes full ROM and Yes no lymphadenopathy Resp Effort & Inspection: normal respiratory effort Auscultation: clear to auscultation bilaterally, no crackles, no rales, no rhonchi and no wheezes Cardio Rate: regular rate Rhythm: regular rhythm Skin General skin exam: no rashes or lesions noted Neuro General: patient oriented x3 Gait exam (Neuro): Normal gait present Extrem General: Yes normal to inspection, Yes full ROM and No edema Psych Affect: normal affect Attitude: cooperative Insight: Good insight present (Psych) Judgement: Good judgement present (Psych) Coding Level of Care Code New Pt Level 4 (71901) Diagnoses Depression F32.A Anxiety F41.9 Additional Codes DANILO-7 Assessment Billing - DANILO-7 Assessment Tool: DANILO-7 Assessment 23371 ([id number]) PHQ-9 - 31224 - PHQ-9 Billing: Yes ([id number]) Assessment & Plan Assessment & Plan (1) Depression: Code(s): F32.A - Depression, unspecified Category: Medical Plan: The patient is experiencing depression, characterized by feelings of being overwhelmed and emotional distress. She reports improvement over time but continues to struggle with emotional regulation and guilt. Counseling has been recommended to provide support and coping strategies. (2) Anxiety: Code(s): F41.9 - Anxiety disorder, unspecified Category: Medical Plan: The patient reports anxiety, with symptoms of feeling overwhelmed and difficulty managing emotions. She is open to counseling to help manage these symptoms and has not yet pursued medication. Plan I did order for blood work and plan to follow up in 3 months for a full annual physical. Referral was placed to counseling for anxiety and depression. Patient to reach out sooner if needed or pending blood work evaluation. This note was constructed using voice recognition software. While every effort has been made to ensure accuracy and industrial engineering analyst, still areas may have been included sometimes these areas may affect the content or meeting of the given symptoms. Total time spent caring for the patient today was 30 minutes. This includes time spent before the visit reviewing the chart, time spent during the visit, and time spent after the visit and documentation. Patient was informed and verbally consented to the use of an ambient scribe for clinic note documentation during this visit. Orders: Orders TSH reflex Free T4 05/14/25 Z13.29 - Encounter for screening for other suspected endocrine disorder Vitamin B12 and Folate 05/14/25 Z13.21 - Encounter for screening for nutritional disorder Comprehensive Met. Panel 05/14/25 Z13.1 - Encounter for screening for diabetes mellitus Vitamin D 25-OH Total 05/14/25 Z13.21 - Encounter for screening for nutritional disorder Complete Blood Count Auto Diff 05/14/25 Z13.0 - Encounter for screening for diseases of the blood and blood-forming organs and certain disorders involving the immune mechanism Referrals Counseling Referral F32.A - Depression, unspecified, F41.9 - Anxiety disorder, unspecified
--- OUTSIDE RECORDS SUMMARY | 2025-05-14 16:40 | XMS_ITS | Clinical Summary ---
Author Organization [facility] Address [address] [place] [address] Phone Care Team Providers Care Reproductive Endocrinologist Name Role Phone Barb Gonzales MD Primary Care Provider [phone] Allergies No known active allergies Medications medroxyPROGESTE [...] IM Every 3 months 01/07/2025 01/02/2026 Active Active Problems Problem Noted Date Diagnosed Date [...] PM EDT Clinical Support Obstetrics and Gynecology - [address] [address] Encounter for management and injection of depo-Provera (Primary Dx) 03/01/2025 Telephone Obstetrics & Gynecology - [address] [address] Candi Blanco CNM from Last 3 Months Immunizations Immunization Administration Dates Next Due DTaP 5 pertussis [...] 5d F Vag-S pont N Living Delivery Location:[facility] Last Filed Vital Signs Vital Sign Reading [...] PM EST Clinical Support Obstetrics and Gynecology [address] [address] Health Maintenance Due Date Last Done Comments Gonorrhea/Chlamydia Screening 2002 Pneumococcal Vaccine: Pediatrics (0 to 5 Years) and At-Risk Patients (6 to 49 Years) (1 of 1 - PPSV23, PCV20, or PCV21) 2008 09/03/2003, 02/26/2003, 2002 HIV Screening 03/06/2024 Hepatitis C Screening 03/06/2024 Social Influencers of Health Screening 03/06/2024 Depression Screening 08/08/2024 COVID-19 Vaccine ( season) 2025 Influenza Vaccine (#1) 2025 , 06/12/2019, 06/20/2018, Additional history exists Cervical Cancer Screening: Pap Smear 12/15/2026 12/16/2023, 12/16/2023 DTaP,Tdap,and Td Vaccines (8 - Td or Tdap) 01/23/2034 01/24/2024, 10/04/2013, 06/20/2007, Additional history exists RSV Immunization Adult Patients (1 - 1-dose 75+ series) 2077 HIB Vaccines Completed 02/28/2004, 08/09, 02/26/2003, Additional [...] Provider LAB CYTOLOGY ORDERABLES F inal Result [facility] [address] [place] [address] from Last 3 Months or Most Recently Relevant to Health Maintenance Insurance [facility] Care Teams Reproductive Endocrinologist Relationship Specialty Start Date End Date Barb Gonzales MD [address] [place] [id number] PCP - General 03/05/19
--- OUTSIDE RECORDS SUMMARY | 2025-05-14 16:40 | XMS_ITS | Clinical Summary ---
Author Organization [facility] Address [address] [place] [id number] Phone Care Team Providers Care Angular Js Developer Name Role Phone Unavailable Primary Care Provider [...] academic development due to the COVID pandemic (eja-jeegis-pepabr stressors). Patient will benefit from follow-up with [facility] until she can bridge to a therapist in the community. PLAN: Follow up with [facility] and bridge to outpatient services Patient goal [...] trauma form dashboard- never evaluated. Ref to [facility] Immunizations Immunization Administration Dates Next [...] 06/12/2019, 06/20/2018, Additional history exists COVID-19 Vaccine ( - 2024-2 6 season) 2025 Pneumococcal Vaccine Completed 09/03/2003, 02/26/2003, [...] Completed 08/17/2021, 07/23/2020 Procedures * Due to [facility] law, this organization might not be sharing sensitive test results. Procedure Name Priority Date/Time Associated Diagnosis Comments CHLAMYDIA AND GONORRHEA, AMPLIFIED Routine 12/14/2021 10:28 AM EDT Screening for chlamydial disease from Last 3 Months or Most Recently Relevant to Health Maintenance Results * Due to [place] law, this organization might not be sharing sensitive test results. * Chlamydia and Gonorrhoea, Amplified (12/14/2021 10:28 AM EDT) Chlamydia Trachomatis, DNA Probe NEGATIVE (NEG) [facility] Comment: No Chlamydia Trachomatis RNA detected in this patient's sample (REFERENCE RANGE/NORMAL VALUE: NOT DETECTED) Note: This test uses security operations engineer- mediated amplification method to detect rRNA from C. Trachomatis URINE GC AMP PROBE NEGATIVE (NEG) [facility] Comment: No Neisseria Gonorrhoeae RNA detected in this patient's sample (REFERENCE RANGE/NORMAL VALUE: NOT DETECTED) NOTE: This test uses security operations engineer-mediated amplification method to detect rRNA from N.Gonorrhoeae. [...] without risk of sexual abuse. Consult the [facility] if needed. Contact phone number . Therapeutic failure or success cannot be determined with the Aptima Combo2 assay since nucleic acid may persist following appropriate antimicrobial therapy. The Centers for Disease Control and Prevention (CDC) recommends confirmatory retesting using culture or a different nucleic acid amplification test when positive results occur, if indicated. Testing performed or reported by [facility], a Service of [facility], [address], [place] [address] Jean-Pierre Levy MD, Substance Abuse Technician [facility]# [id number] Urine (Urine) 12/14/2021 10: 28 AM EDT 12/14/2021 4:35 PM EDT us Belkis Pugh MD LAB MICROBIOLOGY - GENERAL RESHMA [place] Final Result [facility] from Last 3 Months or Most Recently Relevant to Health Maintenance
--- OUTSIDE RECORDS SUMMARY | 2025-05-14 16:40 | XMS_ITS | Encounter Summary ---
Author Organization [facility] Address [address] [place] [address] Phone Care Team Providers Care Collections And Archives Director Name Role Phone Provider, Amish OQUENDO Primary Care Provider [phone] Encounter Details Date Type Department Care Team (Late st Contact Info) Description 09/21/2010 Documentation [facility] Family Medicine [address] [place] [address] Family Medicine, Physician [address] [place], [place] [address] Social History Tobacco Use Types Packs/Day Years [...] on filedocumented in this encounter Care Teams Collections And Archives Director Relationship Specialty Start Date End Date Provider, MD Amish [address] [place] [address] PCP - General Pediatrics 11/03/23 11/03/23 documented as of this encounter
--- OUTSIDE RECORDS SUMMARY | 2025-05-14 16:40 | XMS_ITS | Encounter Summary ---
Author Organization [facility] Address [address] [place] [address] Phone Care Team Providers Care Manager Business Name Role Phone Provider, Amish OQUENDO Primary Care Provider [phone] Encounter Details Date Type Department Care Team (Late st Contact Info) Description 10/21/2010 Documentation [facility] [place] Family Medicine [address] [place] [address] Family Medicine, Physician [address], [place] [id number] Social History Tobacco Use Types Packs/Day Years [...] on filedocumented in this encounter Care Teams Manager Business Relationship Specialty Start Date End Date Provider, MD Amish [address] [place] [address] PCP - General Pediatrics 11/03/23 11/03/23 documented as of this encounter
--- OUTSIDE RECORDS SUMMARY | 2025-05-14 16:40 | XMS_ITS | Encounter Summary ---
Author Organization [facility] Address [address] [place] [address] Phone Care Team Providers Care Mobile Practice Lead Name Role Phone Provider, Amish OQUENDO Primary Care Provider [phone] Encounter Details Date Type Department Care Team (Late st Contact Info) Description 03/19/2013 Documentation [facility] [address] [place] [address] Family Medicine, Physician [address] [phone] Social History Tobacco Use Types Packs/Day Years [...] on filedocumented in this encounter Care Teams Mobile Practice Lead Relationship Specialty Start Date End Date Provider, MD Amish [address] [place] [address] PCP - General Pediatrics 11/03/23 11/03/23 documented as of this encounter
--- OUTSIDE RECORDS SUMMARY | 2025-05-14 16:40 | XMS_ITS | Encounter Summary ---
Author Organization [facility] Address [address] [place] [address] Phone Care Team Providers Care Conveyor Attendant Name Role Phone Provider, Amish OQUENDO Primary Care Provider [phone] Encounter Details Date Type Department Care Team ([facility] st Contact Info) Description 03/24/2017 Conversion Encounter [address] [address] Social History Tobacco Use Types Packs/Day Years [...] on filedocumented in this encounter Care Teams Conveyor Attendant Relationship Specialty Start Date End Date Provider, MD Amish [address] [place] [phone] PCP - General Pediatrics 11/03/23 11/03/23 documented as of this encounter
--- OUTSIDE RECORDS SUMMARY | 2025-05-14 16:40 | XMS_ITS | Encounter Summary ---
Author Organization [facility] Address [address] [place] [address] Phone Care Team Providers Care Powerhouse Mechanic Supervisor Name Role Phone Provider, Amish OQUENDO Primary Care Provider [phone] Encounter Details Date Type Department Care Team (Late st Contact Info) Description 12/18/2009 Documentation [facility] [place] Family Medicine [address] [place], [place] [phone] Family Medicine, Physician [address] [place] [phone] Social History Tobacco Use Types Packs/Day Years [...] on filedocumented in this encounter Care Teams Powerhouse Mechanic Supervisor Relationship Specialty Start Date End Date Provider, MD Amish [address] [place] [address] PCP - General Pediatrics 11/03/23 11/03/23 documented as of this encounter
--- OUTSIDE RECORDS SUMMARY | 2025-05-14 16:40 | XMS_ITS | Encounter Summary ---
Author Organization [facility] Address [address] [place] [address] Phone Care Team Providers Care Cadd Operator Name Role Phone Provider, Amish OQUENDO Primary Care Provider [phone] Encounter Details Date Type Department Care Team (Late st Contact Info) Description 10/08/2009 Documentation [facility] [place] [address] [place] [address] Family Medicine, Physician [address], [place] [phone] Social History Tobacco Use Types Packs/Day Years [...] on filedocumented in this encounter Care Teams Cadd Operator Relationship Specialty Start Date End Date Provider, MD Amish [address] [place] [address] PCP - General Pediatrics 11/03/23 11/03/23 documented as of this encounter
== END 2025-05-14 14:29 | disposition home or self-care (01) ==
LOC: HO.HMCH 13:33
DX: F32.A Depression, unspecified (principal); F41.9 Anxiety disorder, unspecified